=== PATIENT | female | born 1955 | race Caucasian/White ===

== ENCOUNTER 2021-09-27 20:55 | Inpatient (IN) | payer MEDICARE, MEDICAID ==
[~2021-09-27] VITALS: Ht 154.9 cm; Wt 54.2 kg
[~2021-09-27 20:55] MED LIST: AMIT-166 PO; CALC-877 PO; CLON-595 PO; DOCU250C28 PO; DULO60CA98 PO; HALDOL IM; HALO10TA20 PO; HALO5L PO; LAMO200T PO; LITH450CRT PO; LORA1TAB3 PO; LORA2I IM; MULT-660 PO; OLAN15TA5 PO; PHEN300C6 PO; PHEN50TA PO; QUET300T2 PO; SENN8.6T90 PO; TIOT185 IH
[2021-09-27] MEDS ORDERED: IPRATROPIUM BROMIDE 0.5 MG/2.5 ML NEB SOLUTION NEB ONE (21:45)
[2021-09-27] MEDS ORDERED: ALBUTEROL SULFATE 2.5 MG/0.5 ML NEB SOLUTION NEB ONE (21:45)
[2021-09-27] MEDS ORDERED: CefTRIAXone 1 GM/DEXTROSE 50 ML IV ONE (21:45)
[2021-09-27] MEDS ORDERED: MethylPREDNISolone SOD SUCC 125 MG/2 ML VIAL IVP ONE (21:45)
[2021-09-27] MEDS: OXYGEN THERAPY IH SCH (21:57)
[2021-09-27] MEDS ORDERED: PERTUSS(ACELL),DIPH,TET VAC/PF 0.5 ML SYRINGE IM. ONE (22:00)
[2021-09-27] MEDS ORDERED: BACITRACIN 0.9 GM PACKET OINTMENT TP ONE (22:00)
[2021-09-27 22:50] LABS: BASOPHILS % (AUTO) 0.1 % (0.0-2.0); EOSINOPHILS % (AUTO) 2.4 % (1.0-6.0); HEMATOCRIT 35.7 % (36-46); HEMOGLOBIN 11.7 g/dL (12.0-16.0); LYMPHOCYTES # (AUTO) 1.8 K/uL (1.0-4.8); MEAN CORPUSCULAR HEMOGLOBIN 27.8 pg (26.0-34.0); MEAN CORPUSCULAR HGB CONC 32.9 G/dL (31.0-37.0); MEAN CORPUSCULAR VOLUME 85 fL (80-100); MONOCYTES # (AUTO) 0.6 K/uL (0.1-1.0); MONOCYTES % (AUTO) 10.2 % (2.0-9.0); NEUTROPHILS # (AUTO) 3.2 K/uL (1.8-7.7); NEUTROPHILS % (AUTO) 56.3 % (40.0-70.0); PLATELET COUNT (AUTO) 204 K/uL (150-450); RED BLOOD CELL COUNT(AUTO) 4.22 MIL/uL (4.00-5.20); RED CELL DISTRIBUTION WIDTH 15.8 % (11.5-14.5)
[2021-09-27 23:00] LABS: CALCIUM, TOTAL 9.9 mg/dL (8.8-10.5); CREATININE 1.33 mg/dL (0.60-1.30); POTASSIUM 3.6 mmol/L (3.5-5.1)
[2021-09-27 23:05] LABS: ALBUMIN 3.1 g/dL (3.4-5.0); BILIRUBIN,TOTAL 0.2 mg/dL (0.1-1.0); TOTAL PROTEIN, SERUM 7.1 g/dL (6.4-8.2)
[2021-09-27] MEDS ORDERED: ACETAMINOPHEN 325 MG TABLET PO PRN (23:15)
[2021-09-27] MEDS ORDERED: ASPIRIN 325 MG TABLET PO ONE (23:15)
[2021-09-27] MEDS ORDERED: ALBUTEROL SULFATE 2.5 MG/0.5 ML NEB SOLUTION NEB PRN (23:15)
[2021-09-27] MEDS ORDERED: ONDANSETRON HCL 4 MG/2 ML VIAL IVP PRN (23:15)
[2021-09-27] MEDS ORDERED: AZITHROMYCIN 500 MG TABLET PO ONE (23:15)
[2021-09-27] MEDS ORDERED: NITROGLYCERIN 2% (1 GM=INCH) PACKET TP ONE (23:15)
[2021-09-27] MEDS ORDERED: IPRATROPIUM BROMIDE 0.5 MG/2.5 ML NEB SOLUTION NEB PRN (23:15)
[2021-09-28] VITALS (8 sets, daily range): BP systolic 114–136; BP diastolic 56–73
[2021-09-28] LABS: COVID AG,FIA SOURCE NASOPHARYNGEAL
[2021-09-28] MEDS ORDERED: HEPARIN SODIUM,PORCINE 5,000 UNITS/ML VIAL SQ SCH
[2021-09-28 00:18] LABS: ABG BASE EXCESS 5.2 mmol/L (-2.0-3.0); ABG CARBOXYHEMOGLOBIN 1.2 % (0.0-1.5); ABG HCO3 27.3 mmol/L (22.0-26.0); ABG METHEMOGLOBIN 0.1 % (0.0-1.5); ABG OXYGEN CONTENT 16.9 mL/dL (15.0-23.0); ABG OXYGEN SATURATION 95.4 % (95.0-98.0); ABG OXYHEMOGLOBIN 94.2 % (94.0-100.0); ABG PH 7.263 (7.35-7.450); ABG TOTAL HEMOGLOBIN 12.7 G/dL (12.0-18.0); PO2, ARTERIAL BG 86.2 mmHg (79.0-87.0); SOURCE, BLOOD GAS ARTERIAL; TEMPERATURE, FAHRENHEIT, BG 98.6 FAHREN (96.0-98.6)
[2021-09-28 00:19] LABS: ABG PCO2 73 mmHg (35-45); SITE, BLOOD GAS RT RADIAL
[2021-09-28 00:20] LABS: O2 DEVICE,BLOOD GAS CANNULA (ROOM AIR)
[2021-09-28] MEDS ORDERED: DOCUSATE SODIUM 250 MG CAPSULE PO SCH (06:45)
[2021-09-28] MEDS ORDERED: SODIUM CHLORIDE 0.9% 250 ML IV ONE (07:44)
[2021-09-28] MEDS: OXYGEN THERAPY IH SCH (07:45)
[2021-09-28] MEDS: CefTRIAXone 1 GM/DEXTROSE 50 ML IV SCH (07:48)
[2021-09-28] MEDS: MULTIVITAMINS, THERAPEUTIC TABLET PO SCH (08:18)
[2021-09-28] MEDS: DULoxetine HCL 60 MG CAPSULE PO SCH (08:18)
[2021-09-28] MEDS: PHENYTOIN 50 MG CHEWABLE TABLET PO SCH (08:18)
[2021-09-28] MEDS: ClonazePAM 1 MG TABLET PO SCH ×2 (08:18→21:01)
[2021-09-28] MEDS: ETHYL ALCOHOL 62% ANTISEPTIC NASAL INHALANT 0.6 ML AMPUL NASAL SCH ×2 (08:19→21:03)
[2021-09-28] MEDS: SENNA 187 MG TABLET PO SCH (08:19)
[2021-09-28] MEDS ORDERED: MethylPREDNISolone SOD SUCC 125 MG/2 ML VIAL IVP SCH (09:00)
[2021-09-28] MEDS: AZITHROMYCIN 250 MG TABLET PO SCH (13:50)
[2021-09-28] MEDS: CALCIUM OYSTER SHELL 250 MG-VIT D3 125 UNITS TABLET PO SCH ×2 (13:50→21:00)
[2021-09-28] MEDS ORDERED: LamoTRIgine 100 MG TABLET PO SCH (21:00)
[2021-09-28] MEDS: PHENYTOIN SODIUM 100 MG ER CAPSULE PO SCH (21:00)
[2021-09-28] MEDS ORDERED: OLANZapine 10 MG RAPDIS TABLET PO SCH (21:00)
[2021-09-28] MEDS: AMITRIPTYLINE HCL 10 MG TABLET PO SCH (21:00)
[2021-09-28] MEDS: LITHIUM CARBONATE 450 MG ER TABLET PO SCH (21:01)
[2021-09-28] MEDS: MethylPREDNISolone SOD SUCC 125 MG/2 ML VIAL IVP SCH (21:02)
[2021-09-28] MEDS: FLUTICASONE/VILANTEROL 200-25 MCG/INH INHALER [14] IH SCH (21:02)
[2021-09-29 00:34] VITALS: BP 119/68
[2021-09-29 04:16] VITALS: BP 106/66
[2021-09-29] MEDS ORDERED: SODIUM CHLORIDE 0.9% 250 ML IV ONE (05:28)
[2021-09-29] MEDS: CefTRIAXone 1 GM/DEXTROSE 50 ML IV SCH (06:02)
[2021-09-29 06:59] LABS: EOSINOPHILS % (AUTO) 0 % (1.0-6.0); HEMATOCRIT 40.7 % (36-46); HEMOGLOBIN 13.2 g/dL (12.0-16.0); LYMPHOCYTES # (AUTO) 0.9 K/uL (1.0-4.8); LYMPHOCYTES % (AUTO) 18.1 % (22.0-44.0); MEAN CORPUSCULAR HEMOGLOBIN 27.6 pg (26.0-34.0); MEAN CORPUSCULAR HGB CONC 32.4 G/dL (31.0-37.0); MEAN CORPUSCULAR VOLUME 85 fL (80-100); MONOCYTES # (AUTO) 0.3 K/uL (0.1-1.0); MONOCYTES % (AUTO) 5.2 % (2.0-9.0); NEUTROPHILS # (AUTO) 3.7 K/uL (1.8-7.7); NEUTROPHILS % (AUTO) 76.7 % (40.0-70.0); PLATELET COUNT (AUTO) 210 K/uL (150-450); RED BLOOD CELL COUNT(AUTO) 4.79 MIL/uL (4.00-5.20); RED CELL DISTRIBUTION WIDTH 15.7 % (11.5-14.5)
[2021-09-29 07:14] LABS: ANION GAP 3 mmol/L (8-16); CALCIUM, TOTAL 10.5 mg/dL (8.8-10.5); CARBON DIOXIDE 35 mmol/L (22-29); CHLORIDE 102 mmol/L (98-107); CREATININE 0.83 mg/dL (0.60-1.30); GLOMERULAR FILTR. RATE CALC > 60 mL/min (>60); GLUCOSE,RANDOM 125 mg/dL (70-110); POTASSIUM 4.6 mmol/L (3.5-5.1); SODIUM SERUM 140 mmol/L (136-145); UREA NITROGEN, BLOOD 23 mg/dL (7-18)
[2021-09-29 08:15] VITALS: BP 120/73
[2021-09-29] MEDS: ClonazePAM 1 MG TABLET PO SCH (08:17)
[2021-09-29] MEDS: CALCIUM OYSTER SHELL 250 MG-VIT D3 125 UNITS TABLET PO SCH ×2 (08:17→21:17)
[2021-09-29] MEDS: MULTIVITAMINS, THERAPEUTIC TABLET PO SCH (08:17)
[2021-09-29] MEDS: SENNA 187 MG TABLET PO SCH (08:17)
[2021-09-29] MEDS: PHENYTOIN 50 MG CHEWABLE TABLET PO SCH (08:17)
[2021-09-29] MEDS: DULoxetine HCL 60 MG CAPSULE PO SCH (08:18)
[2021-09-29] MEDS: AZITHROMYCIN 250 MG TABLET PO SCH (08:18)
[2021-09-29] MEDS: ETHYL ALCOHOL 62% ANTISEPTIC NASAL INHALANT 0.6 ML AMPUL NASAL SCH ×2 (08:31→21:17)
[2021-09-29] MEDS: MethylPREDNISolone SOD SUCC 125 MG/2 ML VIAL IVP SCH ×2 (08:35→21:17)
[2021-09-29 11:15] VITALS: BP 134/92
[2021-09-29] MEDS ORDERED: CHLO10TA9 PO (15:00)
[2021-09-29] MEDS ORDERED: OLAN20TA2 PO (15:00)
[2021-09-29] MEDS ORDERED: HALO5TAB23 PO (15:00)
[2021-09-29] MEDS ORDERED: CALC-613 PO (15:00)
[2021-09-29] MEDS ORDERED: CHOL2000 PO (15:00)
[2021-09-29] MEDS ORDERED: DIVA125C20 PO (15:00)
[2021-09-29] MEDS ORDERED: MOM30 PO (15:00)
[2021-09-29] MEDS ORDERED: ESCI20TA87 PO (15:00)
[2021-09-29] MEDS ORDERED: MULT-1133 PO (15:00)
[2021-09-29] MEDS ORDERED: LACT10SO62 PO (15:00)
[2021-09-29] MEDS ORDERED: BISA-123 PO (15:00)
[2021-09-29] MEDS ORDERED: DIPH25CA85 PO (15:00)
[2021-09-29] MEDS ORDERED: PALI234D IM (15:00)
[2021-09-29] MEDS ORDERED: CLON-592 PO (15:04)
[2021-09-29 16:02] VITALS: BP 125/69
[2021-09-29 19:24] LABS: AMPHET/METH SCREEN,URINE NEGATIVE (NEGATIVE); BARBITURATE SCREEN, URINE NEGATIVE (NEGATIVE); BENZODIAZEPINES SCREEN,URINE NEGATIVE (NEGATIVE); CANNABINOID SCREEN,URINE NEGATIVE (NEGATIVE); COCAINE SCREEN,URINE NEGATIVE (NEGATIVE); METHADONE SCREEN, URINE NEGATIVE (NEGATIVE); OPIATE SCREEN,URINE NEGATIVE (NEGATIVE)
[2021-09-29 19:25] LABS: PHENCYCLIDINE SCREEN,URINE NEGATIVE (NEGATIVE)
[2021-09-29 20:26] VITALS: BP 129/68
[2021-09-29] MEDS: PHENYTOIN SODIUM 100 MG ER CAPSULE PO SCH (21:15)
[2021-09-29] MEDS: LITHIUM CARBONATE 450 MG ER TABLET PO SCH (21:15)
[2021-09-29] MEDS: AMITRIPTYLINE HCL 10 MG TABLET PO SCH (21:17)
[2021-09-29] MEDS: OLANZapine 10 MG RAPDIS TABLET PO SCH (21:17)
[2021-09-29] MEDS: FLUTICASONE/VILANTEROL 200-25 MCG/INH INHALER [14] IH SCH (21:18)
[2021-09-30 00:12] VITALS: BP 121/66
[2021-09-30 04:32] VITALS: BP 114/70
[2021-09-30] MEDS: CefTRIAXone 1 GM/DEXTROSE 50 ML IV SCH (06:25)
[2021-09-30 07:41] VITALS: BP 120/75
[2021-09-30 07:45] LABS: BASOPHILS % (AUTO) 0.2 % (0.0-2.0); EOSINOPHILS % (AUTO) 0 % (1.0-6.0); HEMATOCRIT 38.4 % (36-46); HEMOGLOBIN 12.6 g/dL (12.0-16.0); LYMPHOCYTES # (AUTO) 0.9 K/uL (1.0-4.8); LYMPHOCYTES % (AUTO) 15.1 % (22.0-44.0); MEAN CORPUSCULAR HEMOGLOBIN 27.8 pg (26.0-34.0); MEAN CORPUSCULAR HGB CONC 32.7 G/dL (31.0-37.0); MEAN CORPUSCULAR VOLUME 85 fL (80-100); MONOCYTES # (AUTO) 0.5 K/uL (0.1-1.0); MONOCYTES % (AUTO) 8.8 % (2.0-9.0); NEUTROPHILS # (AUTO) 4.6 K/uL (1.8-7.7); NEUTROPHILS % (AUTO) 75.9 % (40.0-70.0); PLATELET COUNT (AUTO) 219 K/uL (150-450); RED BLOOD CELL COUNT(AUTO) 4.51 MIL/uL (4.00-5.20); RED CELL DISTRIBUTION WIDTH 16.1 % (11.5-14.5)
[2021-09-30 08:00] LABS: ANION GAP -1 mmol/L (8-16); CALCIUM, TOTAL 11.1 mg/dL (8.8-10.5); CARBON DIOXIDE 38 mmol/L (22-29); CHLORIDE 104 mmol/L (98-107); CREATININE 0.89 mg/dL (0.60-1.30); GLOMERULAR FILTR. RATE CALC > 60 mL/min (>60); GLUCOSE,RANDOM 97 mg/dL (70-110); POTASSIUM 4.7 mmol/L (3.5-5.1); SODIUM SERUM 141 mmol/L (136-145); UREA NITROGEN, BLOOD 23 mg/dL (7-18)
[2021-09-30] MEDS: AZITHROMYCIN 250 MG TABLET PO SCH (08:51)
[2021-09-30] MEDS: MethylPREDNISolone SOD SUCC 125 MG/2 ML VIAL IVP SCH ×2 (08:52→20:23)
[2021-09-30] MEDS: DULoxetine HCL 60 MG CAPSULE PO SCH (08:52)
[2021-09-30] MEDS: CALCIUM OYSTER SHELL 250 MG-VIT D3 125 UNITS TABLET PO SCH ×2 (08:52→20:23)
[2021-09-30] MEDS: PHENYTOIN 50 MG CHEWABLE TABLET PO SCH (08:52)
[2021-09-30] MEDS: MULTIVITAMINS, THERAPEUTIC TABLET PO SCH (08:52)
[2021-09-30] MEDS: SENNA 187 MG TABLET PO SCH (08:52)
[2021-09-30] MEDS: ETHYL ALCOHOL 62% ANTISEPTIC NASAL INHALANT 0.6 ML AMPUL NASAL SCH ×2 (10:02→20:24)
[2021-09-30 12:05] VITALS: BP 129/77
[2021-09-30 15:27] VITALS: BP 124/76
[2021-09-30 19:28] VITALS: BP 115/58
[2021-09-30] MEDS: LITHIUM CARBONATE 450 MG ER TABLET PO SCH (20:23)
[2021-09-30] MEDS: AMITRIPTYLINE HCL 10 MG TABLET PO SCH (20:23)
[2021-09-30] MEDS: OLANZapine 10 MG RAPDIS TABLET PO SCH (20:23)
[2021-09-30] MEDS: PHENYTOIN SODIUM 100 MG ER CAPSULE PO SCH (20:24)
[2021-09-30] MEDS: FLUTICASONE/VILANTEROL 200-25 MCG/INH INHALER [14] IH SCH (20:24)
[2021-10-01] VITALS (7 sets, daily range): BP systolic 117–144; BP diastolic 61–78
[2021-10-01] MEDS: CefTRIAXone 1 GM/DEXTROSE 50 ML IV SCH (06:02)
[2021-10-01 08:04] LABS: BASOPHILS % (AUTO) 0.3 % (0.0-2.0); EOSINOPHILS % (AUTO) 0 % (1.0-6.0); HEMATOCRIT 39.7 % (36-46); HEMOGLOBIN 12.8 g/dL (12.0-16.0); LYMPHOCYTES # (AUTO) 1.2 K/uL (1.0-4.8); LYMPHOCYTES % (AUTO) 18.8 % (22.0-44.0); MEAN CORPUSCULAR HEMOGLOBIN 27.5 pg (26.0-34.0); MEAN CORPUSCULAR HGB CONC 32.3 G/dL (31.0-37.0); MEAN CORPUSCULAR VOLUME 85 fL (80-100); MONOCYTES # (AUTO) 0.7 K/uL (0.1-1.0); MONOCYTES % (AUTO) 10.2 % (2.0-9.0); NEUTROPHILS # (AUTO) 4.6 K/uL (1.8-7.7); NEUTROPHILS % (AUTO) 70.7 % (40.0-70.0); PLATELET COUNT (AUTO) 223 K/uL (150-450); RED BLOOD CELL COUNT(AUTO) 4.66 MIL/uL (4.00-5.20); RED CELL DISTRIBUTION WIDTH 16.5 % (11.5-14.5)
[2021-10-01 08:20] LABS: ANION GAP 6 mmol/L (8-16); CALCIUM, TOTAL 11.2 mg/dL (8.8-10.5); CARBON DIOXIDE 35 mmol/L (22-29); CHLORIDE 98 mmol/L (98-107); CREATININE 0.82 mg/dL (0.60-1.30); GLOMERULAR FILTR. RATE CALC > 60 mL/min (>60); GLUCOSE,RANDOM 92 mg/dL (70-110); POTASSIUM 4.5 mmol/L (3.5-5.1); SODIUM SERUM 139 mmol/L (136-145); UREA NITROGEN, BLOOD 22 mg/dL (7-18)
[2021-10-01] MEDS: MethylPREDNISolone SOD SUCC 125 MG/2 ML VIAL IVP SCH ×2 (08:42→22:01)
[2021-10-01] MEDS: DULoxetine HCL 60 MG CAPSULE PO SCH (08:42)
[2021-10-01] MEDS: PHENYTOIN 50 MG CHEWABLE TABLET PO SCH (08:42)
[2021-10-01] MEDS: SENNA 187 MG TABLET PO SCH (08:42)
[2021-10-01] MEDS: AZITHROMYCIN 250 MG TABLET PO SCH (08:42)
[2021-10-01] MEDS: CALCIUM OYSTER SHELL 250 MG-VIT D3 125 UNITS TABLET PO SCH ×2 (08:42→21:16)
[2021-10-01] MEDS: MULTIVITAMINS, THERAPEUTIC TABLET PO SCH (08:42)
[2021-10-01] MEDS: ETHYL ALCOHOL 62% ANTISEPTIC NASAL INHALANT 0.6 ML AMPUL NASAL SCH ×2 (08:46→22:01)
[2021-10-01] MEDS: AMITRIPTYLINE HCL 10 MG TABLET PO SCH (21:14)
[2021-10-01] MEDS: LITHIUM CARBONATE 450 MG ER TABLET PO SCH (21:15)
[2021-10-01] MEDS: OLANZapine 10 MG RAPDIS TABLET PO SCH (21:19)
[2021-10-01] MEDS: PHENYTOIN SODIUM 100 MG ER CAPSULE PO SCH (21:19)
[2021-10-01] MEDS: FLUTICASONE/VILANTEROL 200-25 MCG/INH INHALER [14] IH SCH (22:02)
[2021-10-02 04:16] VITALS: BP 125/68
[2021-10-02] MEDS: MethylPREDNISolone SOD SUCC 125 MG/2 ML VIAL IVP SCH ×2 (08:29→20:47)
[2021-10-02] MEDS: MULTIVITAMINS, THERAPEUTIC TABLET PO SCH (08:29)
[2021-10-02] MEDS: SENNA 187 MG TABLET PO SCH (08:29)
[2021-10-02] MEDS: DULoxetine HCL 60 MG CAPSULE PO SCH (08:30)
[2021-10-02] MEDS: AZITHROMYCIN 250 MG TABLET PO SCH (08:30)
[2021-10-02] MEDS: PHENYTOIN 50 MG CHEWABLE TABLET PO SCH (08:30)
[2021-10-02] MEDS: CALCIUM OYSTER SHELL 250 MG-VIT D3 125 UNITS TABLET PO SCH ×2 (08:30→20:49)
[2021-10-02] MEDS: OXYGEN THERAPY IH SCH (08:31)
[2021-10-02] MEDS: ETHYL ALCOHOL 62% ANTISEPTIC NASAL INHALANT 0.6 ML AMPUL NASAL SCH ×2 (08:31→21:22)
[2021-10-02] MEDS: CefTRIAXone 1 GM/DEXTROSE 50 ML IV SCH (08:33)
[2021-10-02] MEDS ORDERED: SODIUM CHLORIDE 0.9% 500 ML IV ONE (08:47)
[2021-10-02 09:20] VITALS: BP 124/81
[2021-10-02 17:05] VITALS: BP 117/79
[2021-10-02 19:39] VITALS: BP 122/77
[2021-10-02] MEDS: OLANZapine 10 MG RAPDIS TABLET PO SCH (20:49)
[2021-10-02] MEDS: PHENYTOIN SODIUM 100 MG ER CAPSULE PO SCH (20:49)
[2021-10-02] MEDS: AMITRIPTYLINE HCL 10 MG TABLET PO SCH (20:49)
[2021-10-02] MEDS: LITHIUM CARBONATE 450 MG ER TABLET PO SCH (20:49)
[2021-10-02] MEDS: FLUTICASONE/VILANTEROL 200-25 MCG/INH INHALER [14] IH SCH (21:22)
[2021-10-03 04:42] VITALS: BP 138/67
[2021-10-03] MEDS: CefTRIAXone 1 GM/DEXTROSE 50 ML IV SCH (07:00)
[2021-10-03 07:56] VITALS: BP 122/88
[2021-10-03] MEDS: CALCIUM OYSTER SHELL 250 MG-VIT D3 125 UNITS TABLET PO SCH (08:50)
[2021-10-03] MEDS: MULTIVITAMINS, THERAPEUTIC TABLET PO SCH (08:50)
[2021-10-03] MEDS: AZITHROMYCIN 250 MG TABLET PO SCH (08:50)
[2021-10-03] MEDS: DULoxetine HCL 60 MG CAPSULE PO SCH (08:50)
[2021-10-03] MEDS: PHENYTOIN 50 MG CHEWABLE TABLET PO SCH (08:50)
[2021-10-03] MEDS: SENNA 187 MG TABLET PO SCH (08:52)
== END 2021-10-03 10:46 | DRG 189 ==
LOC: EMS 21:51 → ICU 09-28 00:01 → 5S 09-28 18:00 → 6S 10-01 08:35
PROVIDERS: ADMIT Internal Medicine; ATTEND Internal Medicine
PROC: 5A09357 Assistance with Respiratory Ventilation, Less than 24 Consecutive Hours, Continuous Positive Airway Pressure (ICD-10-PCS; principal; 2021-09-28)
DX: J96.02 Acute respiratory failure with hypercapnia (principal); G92.8 Other toxic encephalopathy; J44.1 Chronic obstructive pulmonary disease with (acute) exacerbation; G40.909 Epilepsy, unspecified, not intractable, without status epilepticus; F41.9 Anxiety disorder, unspecified; M19.90 Unspecified osteoarthritis, unspecified site; F31.9 Bipolar disorder, unspecified; M81.0 Age-related osteoporosis without current pathological fracture; R79.89 Other specified abnormal findings of blood chemistry; R55 Syncope and collapse; Z20.822 Contact with and (suspected) exposure to COVID-19; S80.01XA Contusion of right knee, initial encounter; F25.0 Schizoaffective disorder, bipolar type; K21.9 Gastro-esophageal reflux disease without esophagitis; S80.211A Abrasion, right knee, initial encounter; W18.39XA Other fall on same level, initial encounter; Y93.89 Activity, other specified; Y92.128 Other place in nursing home as the place of occurrence of the external cause; Z79.899 Other long term (current) drug therapy; Y99.8 Other external cause status
CPT/HCPCS: 70450; 71045; 80048; 80053; 80185; 80307; 82805; 84484; 85025; 87040; 87081; 90715; 92610; 93005; 94640; 94660; 99291; J0696; J2930; J7040; J7050; Q9967; 36415-L1; 36415-TC; J7613